=== PATIENT | female | born 1945 | race Caucasian/White ===

== ENCOUNTER 2018-05-16 03:45 | Emergency (ER) | payer OTHER ==
--- NOTE | 2018-05-16 03:59 | PDOC ---
History of Present Illness - General Chief Complaint: Chest Pain Stated Complaint: CHEST/HEAD DISCOMFORT Time Seen by Provider: 05/16/18 03:58 History Source: Patient, [employer] Machine Operator Used Exam Limitations: No Limitations - History of Present Illness Initial Comments: 05/16/18 04:29 HPI and ROS performed with phone inventory coordinator - [id number] 73 year old female with PMH HTN, HLD presenting to ED for palpitations since last night. She denies chest pain. She admits to shortness of breath, neck pain. She denies fever, chills, nausea, vomiting, diarrhea, abdominal pain, dysuria. She states she only gets the palpitations when she lies down flat to go to bed. She states she had a headache earlier last night, self-resolved without any medication, she states she gets headaches around once a week, usually will resolve with tylenol. She states she took all of her blood pressure medications. She denies family history of [place]. Past History - Past Medical History Allergies/Adverse Reactions: Allergies Allergy/AdvReac Type Severity Reaction Status Date / Time No Known Allergies Allergy Verified 05/16/18 04:29 Home Medications: Ambulatory Orders Metoprolol Tartrate [Lopressor -] 50 mg PO BID 06/13/12 Lisinopril [Prinivil] 10 mg PO DAILY 04/09/13 HTN: Yes Hypercholesterolemia: Yes - Suicide/Smoking/Psychosocial Hx Smoking Status: No Smoking History: Never smoked Number of Cigarettes Smoked Daily: 0 Review of Systems - Review of Systems Able to Perform ROS?: Yes Comments:: 05/16/18 04:32 General: denies fever, chills, night sweats, generalized weakness. HEENT: denies sore throat, rhinorrhea, ear pain, visual changes. Heart: admits to palpitations. denies chest pain, syncope, lower extremity swelling, diaphoresis. Respiratory: admits to shortness of breath. denies cough, sputum production, hemoptysis. Abdomen: denies abdominal pain, nausea, vomiting, diarrhea, constipation, blood in stool. : denies dysuria, increased urinary frequency, hematuria, urinary incontinence , flank pain. Back: denies back pain. Musculoskeletal: denies joint pain, muscle pain, joint swelling. Neurological: denies headache, dizziness, numbness, tingling, weakness. Skin: denies rash, laceration, abrasion. *Physical Exam - Physical Exam Comments: 05/16/18 04:33 Constitutional: Well-nourished, Well-developed, appearing stated age. HEENT: head is normocephalic, atraumatic. EOMI. PERRLA. Neck: supple. Full ROM. tenderness to palpation of left lateral neck. no midline c-spine tenderness. Heart: regular rhythm. no murmurs, rubs or gallops. Lungs: clear to auscultation bilaterally. no crackles, rhonchi or wheezing. no stridor. Abdomen: soft, nontender. normal bowel sounds. no rebound, guarding, masses. Extremities: Peripheral pulses intact adn equal. No lower extremity edema. Neurological: Alert. Oriented x3. CN2-12 intact. 5/5 strength all extremities. Full sensation all extremities and bilateral face. Romberg negative. Finger to nose normal. Gait normal. Psych: awake, alert, oriented x3. Follows commands. Answers questions appropriately. ED Treatment Course - LABORATORY CBC & Chemistry Diagram: 05/16/18 04:55 05/16/18 04:55 Medical Decision Making - Medical Decision Making 05/16/18 04:34 73 year old female with PMH HTN, HLD presenting to ED for palpitations since last night associated with SOB. Initial Vital Signs Temp Pulse Resp BP Pulse Ox 98.5 F 51 L 18 192/76 H 97 05/16/18 03:50 05/16/18 03:50 05/16/18 03:50 05/16/18 03:50 05/16/18 03:50 Afebrile. Bradycardic. Hypertensive. No hypoxia on room air. Carafate ordered by Dr. Bustamante. Gluagon ordered by Dr. Bustamante for bradycardia. Pt is on metoprolol. EKG performed at 0424 - Rate 47, regular rhythm, left axis, no acute ST changes. Concern for end-organ damage from HTN - Pending CBC, CMP, troponin, CXR Low concern for ACS, arrhythmia, EKG no arrhythmia, no ST changes, no chest pain. - No indication for serial troponins at this time. 05/16/18 05:39 CBC WBC 7.1 K/mm3 (4.0-10.0) 05/16/18 04:55 RBC 4.29 M/mm3 (3.60-5.2) 05/16/18 04:55 Hgb 13.2 GM/dL (10.7-15.3) 05/16/18 04:55 Hct 39.0 % (32.4-45.2) 05/16/18 04:55 MCV 91.0 fl (80-96) 05/16/18 04:55 MCH 30.8 pg (25.7-33.7) 05/16/18 04:55 MCHC 33.9 g/dl (32.0-36.0) 05/16/18 04:55 RDW 14.0 % (11.6-15.6) 05/16/18 04:55 Plt Count 168 K/MM3 (134-434) 05/16/18 04:55 MPV 10.5 fl (7.5-11.1) 05/16/18 04:55 Absolute Neuts (auto) 4.1 K/mm3 (1.5-8.0) 05/16/18 04:55 Neutrophils % 57.6 % (42.8-82.8) 05/16/18 04:55 Lymphocytes % 30.5 % (8-40) D 05/16/18 04:55 Monocytes % 10.0 % (3.8-10.2) 05/16/18 04:55 Eosinophils % 1.3 % (0-4.5) 05/16/18 04:55 Basophils % 0.6 % (0-2.0) 05/16/18 04:55 Nucleated RBC % 0 % (0-0) 05/16/18 04:55 No leukocytosis. No anemia. CMP Sodium 139 mmol/L (136-145) 05/16/18 04:55 Potassium 4.6 mmol/L (3.5-5.1) 05/16/18 04:55 Chloride 107 mmol/L (98-107) 05/16/18 04:55 Carbon Dioxide 27 mmol/L (21-32) 05/16/18 04:55 Anion Gap 5 MMOL/L (8-16) L 05/16/18 04:55 BUN 24 mg/dL (7-18) H 05/16/18 04:55 Creatinine 0.8 mg/dL (0.55-1.3) 05/16/18 04:55 Creat Clearance w eGFR > 60 (>60) 05/16/18 04:55 Random Glucose 89 mg/dL (74-106) 05/16/18 04:55 Calcium 8.9 mg/dL (8.5-10.1) 05/16/18 04:55 Total Bilirubin 0.4 mg/dL (0.2-1) 05/16/18 04:55 AST 15 U/L (15-37) 05/16/18 04:55 ALT 22 U/L (13-61) 05/16/18 04:55 Alkaline Phosphatase 98 U/L (45-117) 05/16/18 04:55 Creatine Kinase 80 IU/L (26-192) 05/16/18 04:55 Troponin I < 0.02 ng/ml (0.00-0.05) 05/16/18 04:55 Total Protein 7.2 g/dl (6.4-8.2) 05/16/18 04:55 Albumin 3.8 g/dl (3.4-5.0) 05/16/18 04:55 No electrolyte abnormalities. No kidney injury. Cardiac enzymes negative. No transaminitis. No evidence of end organ damage. 05/16/18 05:58 Pt reported inability to sleep the last few days, Benadryl was given. Repeat vitals: BP 182/73, lisinopril ordered. HR 50 -Will reassess. 05/16/18 06:17 INR, PTT INR 0.90 (0.83-1.09) 05/16/18 04:55 CXR - no infiltrate, costophrenic angles sharp, no sign of pneumothorax. 05/16/18 07:12 I discussed the case with Dr. Watts, who will assume care of the patient in the Emergency Department. *DC/Admit/Observation/Transfer Diagnosis at time of Disposition: Palpitation - Discharge Dispostion Disposition: HOME Condition at time of disposition: Fair - Referrals Referrals: Flakita Garcia [Primary Care Provider] - Alvaro Kumar MD [Staff Physician] - - Patient Instructions Printed Discharge Instructions: DI for Palpitations Additional Instructions: You were seen today for palpitations. Your blood work was normal. Your EKG was normal. Your chest X-ray was normal. Your blood pressure was high. We gave you medicine to lower it for now, but you will need to follow up with your primary care doctor so that they can alter your medications. Return to the Emergency Department for chest pain, palpitations, passing out, lightheadedness, dizziness, nausea, vomiting, blood in urine, blood in stool, shortness of breath, or any other new, worsening or concerning symptoms. I have provided a referral for a brownfield program coordinator, Dr. Jara. Call his office thursday morning and make an appointment for next week. Tell them you were seen in the Emergency Department. Hoy fuiste visto por palpitaciones. Edwards anlisis de renee fue normal. Tu EKG fue normal. Edwards radiografa de trax era normal. Tu presin arterial era ernie. Le proporcionamos medicamentos para disminuirlo por el momento, rene necesitar hacer un seguimiento con edwards mdico de atencin primaria para que puedan modificar denver medicamentos. Regrese al servicio de urgencias por dolor en el pecho, palpitaciones, desmayos , aturdimiento, mareos, nuseas, vmitos, renee en la orina, renee en las heces, dificultad para respirar o cualquier otro sntoma nuevo, que empeora o que le afecte. He proporcionado ca referencia para un cardilogo, el Dr. Jara. Llame a edwards oficina el lunes por la maana y scotty ca jennifer para la prxima semana. Diles que te vieron en el Departamento de Emergencia. - Post Discharge Activity
--- NOTE | 2018-05-16 04:06 | PDOC ---
Attending Attestation - Resident Resident Name: Shell Felix - ED Attending Attestation I have performed the following: I have examined & evaluated the patient, The case was reviewed & discussed with the resident, I agree w/resident's findings & plan - HPI HPI: 05/16/18 04:52 Pt states that she is here for palpitations only. Her BP is elevated. SHe has no chest pain and no chest pressure and no SOB. Pt states that she takes lisinopril in the day and metoprolol BID. Pt's HR is low 40s. Pt's EKG is jaxon. We will gusset edger her glucagon. 05/16/18 04:54 Pt states that she was unable to sleep on and that she was unable to sleep all thursday, - Physicial Exam PE: 05/16/18 05:05 Normal Exam. With SLNTG, BP came down to 180 sytolic in one arm and 176 in the other - Medical Decision Making 05/16/18 05:08 Pt will have basic labs to look for end organ damage of HTN at home. Pt will also have EKG. CXR pending. Pt will be treated with glucagon for her low heart rate as well as benadryl for her inability to sleep and relax. 05/16/18 19:22 Pt was signed out to the day attending, who will discharge her once her pressure is stable and she is feeling improved. Heart Score/ECG Review - History History: Slightly suspicious - Electrocardiogram EKG: Normal - Age Age: >/= 65 - Risk Factors Risk Factors Heart Score: Yes Hx Hypercholesterolemia, Yes Hx Hypertension Based on the list above the patient has:: >/=3 risk factors or Hx atherosclerotic disease - Troponin Troponin: </= normal limit - Score Heart Score - Total: 4 - ECG Intrepretation Rhythm: Regular Rhythm - [place]: Normal - ST and T Early Repolarization: No Non Specific ST-T Wave changes: No - ECG Impressions Normal ECG: Yes Non-specific ST Elevation: No Ischemic Changes: No
[2018-05-16] MEDS ORDERED: NITROGLYCERIN SUBLINGUAL 1/150 0.4 MG TAB SL ONE (04:21)
[2018-05-16] MEDS ORDERED: NITROGLYCERIN 2% OINTMENT - 1GM PACKET TD ONE (04:21)
[2018-05-16 04:29] VITALS: BMI 26.8
[2018-05-16] MEDS ORDERED: GLUCAGON 1 MG KIT IVPUSH ONE (04:52)
[2018-05-16] MEDS ORDERED: GlUCAGON HUMAN RECOMBINANT 1 MG/VIAL ONE (05:09)
[2018-05-16 05:13] LABS: BASO % 0.6 % (0-2.0); EOS % 1.3 % (0-4.5); HEMOGLOBIN 13.2 GM/dL (10.7-15.3); LYMPH % 30.5 % (8-40); MCH 30.8 pg (25.7-33.7); MCHC 33.9 g/dl (32.0-36.0); MEAN PLT VOLUME 10.5 fl (7.5-11.1); NEUT % 57.6 % (42.8-82.8); PLATELET COUNT 168 K/MM3 (134-434); RBC 4.29 M/mm3 (3.60-5.2); WHITE BLOOD COUNT 7.1 K/mm3 (4.0-10.0)
[2018-05-16 05:25] LABS: INR 0.9 (0.83-1.09); PROTHROMBIN TIME (PATIENT) 10.6 SEC (9.7-13.0)
[2018-05-16 05:28] LABS: ACTIVATED PTT 23.9 SECONDS (25.2-36.5)
[2018-05-16 05:33] LABS: ALBUMIN 3.8 g/dl (3.4-5.0); ALK PHOS 98 U/L (45-117); ANION GAP 5 MMOL/L (8-16); BILIRUBIN,TOTAL 0.4 mg/dL (0.2-1); BLOOD UREA NITROGEN 24 mg/dL (7-18); CALCIUM 8.9 mg/dL (8.5-10.1); CHLORIDE 107 mmol/L (98-107); CO2 27 mmol/L (21-32); CREATININE 0.8 mg/dL (0.55-1.3); GLUCOSE,RANDOM 89 mg/dL (74-106); POTASSIUM 4.6 mmol/L (3.5-5.1); SGOT/AST 15 U/L (15-37); SGPT/ALT 22 U/L (13-61); SODIUM 139 mmol/L (136-145); TOT PROT 7.2 g/dl (6.4-8.2)
[2018-05-16] MEDS ORDERED: LISINOPRIL 10 MG TABLET (FP) PO ONE (05:58)
--- NOTE | 2018-05-16 07:13 | PDOC ---
*Physical Exam - Vital Signs Last Vital Signs Temp Pulse Resp BP Pulse Ox 98.5 F 51 L 18 192/76 H 97 05/16/18 03:50 05/16/18 03:50 05/16/18 03:50 05/16/18 03:50 05/16/18 03:50 ED Treatment Course - LABORATORY CBC & Chemistry Diagram: 05/16/18 04:55 05/16/18 04:55 - ADDITIONAL ORDERS Additional order review: Laboratory Results 05/16/18 05/16/18 04:55 04:55 PT with INR 10.60 INR 0.90 PTT (Actin FS) 23.9 L Sodium 139 Potassium 4.6 Chloride 107 Carbon Dioxide 27 Anion Gap 5 L BUN 24 H Creatinine 0.8 Creat Clearance w eGFR > 60 Random Glucose 89 Calcium 8.9 Total Bilirubin 0.4 AST 15 ALT 22 Alkaline Phosphatase 98 Creatine Kinase 80 Troponin I < 0.02 Total Protein 7.2 Albumin 3.8 05/16/18 04:55 RBC 4.29 MCV 91.0 MCHC 33.9 RDW 14.0 MPV 10.5 Neutrophils % 57.6 Lymphocytes % 30.5 D Monocytes % 10.0 Eosinophils % 1.3 Basophils % 0.6 - Medications Given in the ED: ED Medications Discontinued Medications Generic Name Dose Route Start Last Admin Trade Name Freq PRN Reason Stop Dose Admin Diphenhydramine HCl 50 mg 05/16/18 04:54 05/16/18 05:26 Benadryl Injection - IVPB 05/16/18 04:55 50 mg ONCE ONE Administration Glucagon 1 mg 05/16/18 04:52 05/16/18 05:26 Glucagon - IVPUSH 05/16/18 04:53 1 mg ONCE ONE Administration Lisinopril 10 mg 05/16/18 05:58 05/16/18 06:40 Prinivil PO 05/16/18 05:59 10 mg ONCE ONE Administration Nitroglycerin 0.4 mg 05/16/18 04:21 05/16/18 05:26 Nitrostat - SL 05/16/18 04:22 Not Given ONCE ONE Nitroglycerin 1 inch 05/16/18 04:21 05/16/18 05:26 Nitro-Bid 2% Paste - TD 05/16/18 04:22 Not Given ONCE ONE Medical Decision Making - Medical Decision Making 73 year old female presenting with palpitations and elevated BP a home. Signed out to me in stable condition with repeat BP in the 150s/ 70s. Appears jaxon but patient is perfusing well as she is AOx3, walking, and able to carry out her ADLs. EKG [id number], OR 152, QRS 80, QTc 403, and normal xis without ST or T wave changes. All labs WNL. Will DC home with follow up instructions and return precautions, 05/16/18 08:43 *DC/Admit/Observation/Transfer Diagnosis at time of Disposition: Palpitation - Discharge Dispostion Disposition: HOME Condition at time of disposition: Fair - Referrals Referrals: Alvaro Kumar MD [Staff Physician] - Flakita Garcia [Primary Care Provider] - - Patient Instructions Printed Discharge Instructions: DI for Palpitations Additional Instructions: You were seen today for palpitations. Your blood work was normal. Your EKG was normal. Your chest X-ray was normal. Your blood pressure was high. We gave you medicine to lower it for now, but you will need to follow up with your primary care doctor so that they can alter your medications. Return to the Emergency Department for chest pain, palpitations, passing out, lightheadedness, dizziness, nausea, vomiting, blood in urine, blood in stool, shortness of breath, or any other new, worsening or concerning symptoms. I have provided a referral for a stove fitter, Dr. Jara. Call his office thursday morning and make an appointment for next week. Tell them you were seen in the Emergency Department. Hoy fuiste visto por palpitaciones. Edwards anlisis de renee fue normal. Tu EKG fue normal. Edwards radiografa de trax era normal. Tu presin arterial era ernie. Le proporcionamos medicamentos para disminuirlo por el momento, rene necesitar hacer un seguimiento con edwards mdico de atencin primaria para que puedan modificar denver medicamentos. Regrese al servicio de urgencias por dolor en el pecho, palpitaciones, desmayos , aturdimiento, mareos, nuseas, vmitos, renee en la orina, renee en las heces, dificultad para respirar o cualquier otro sntoma nuevo, que empeora o que le afecte. He proporcionado ca referencia para un cardilogo, el Dr. Jara. Llame a edwards oficina el lunes por la maana y scotty ca jennifer para la prxima semana. Diles que te vieron en el Departamento de Emergencia. - Post Discharge Activity
[2018-05-16 07:36] VITALS: TEMP 99.3
[2018-05-16 09:24] VITALS: BP 155/68; PULSE 52
--- NOTE | 2018-05-17 06:29 | EKG ---
Test Reason : Blood Pressure : / mmHG Vent. Rate : 047 BPM Atrial Rate : 047 BPM P-R Int : 152 ms QRS Dur : 080 ms QT Int : 456 ms P-R-T Axes : 026 -10 020 degrees QTc Int : 403 ms SINUS BRADYCARDIA OTHERWISE NORMAL ECG WHEN COMPARED WITH ECG OF 09-APR-2013 00:51, NO SIGNIFICANT CHANGE WAS FOUND Confirmed by RADHIKA BARBOSA MD ([id number]) on 05/17/2018 6:29:00 AM Referred By: Confirmed By:RADHIKA BARBOSA MD
== END 2018-05-16 09:27 | disposition home or self-care (01) ==
LOC: JER 03:45
PROC: 3E033GC Introduction of Other Therapeutic Substance into Peripheral Vein, Percutaneous Approach (ICD-10-PCS; principal; 2018-05-16)
DX: R00.2 Palpitations (principal)
CPT/HCPCS: 36415; 71045-TC-FY; 80053; 82550; 84484; 85025; 85610; 85730; 93005; 93010; 96374; 96375; 99285-25

== ENCOUNTER 2018-06-02 03:51 | Inpatient (IN) | payer OTHER ==
--- NOTE | 2018-06-02 04:14 | PDOC ---
Attending Attestation - Resident Resident Name: Rustam Choudhary - ED Attending Attestation I have performed the following: I have examined & evaluated the patient, The case was reviewed & discussed with the resident, I agree w/resident's findings & plan, Exceptions are as noted - HPI HPI: 06/02/18 07:01 Ms Wilson presents to the ER with a complaint of palpitations and chest pain No fevers or chills - Physicial Exam PE: 06/02/18 07:02 on exam: RRR, bradycardia CTA b/l No abd tenderness - Medical Decision Making 06/02/18 07:04 EKG: SR rate of 59 bpm , axis nml, no st elevation or depression No tachycardia 06/02/18 07:04 Laboratory Tests 06/02/18 06:05 WBC 4.9 Hgb 12.6 Hct 38.5 Plt Count 152 06/03/18 06:14 pending CMP pt signed out to day time attending pt admitted Clinical impressions, initial presentation
--- NOTE | 2018-06-02 04:25 | PDOC ---
History of Present Illness - History of Present Illness Initial Comments: 06/02/18 04:23 73 yo F with h/o HTN, who p/w palpitations, and chest pain. Patient reports acute onset of palpitations this morning, and non-pleuritic, worsening, left sided chest pain, at rest beginning this evening. No identifiable triggers, or alleviators. Also endorses SOB intermittently. Reports recent medication change. Started on Amlodipine. Denies h/o similiar symptoms. Patient denies N/V, Orthopnea, PND, leg swelling/pain, F/C, CP, SOB, urinary complaints, abdominal pain, diarrhea, constipation, lightheadedness, weakness, sensory changes. PMHx: as noted above. Denies h/o ACS/WA, stent placement, CABG, or abnml stress testing. Does not recall previous stress test. Denies h/o PE or DVT. ROS: as noted SHx: Tobacco cessation x 11 years. Denies Etoh, IVDA. Allergies: NKDA <Rustam Choudhary - Last Filed: 06/02/18 06:29> <Catie Keller - Last Filed: 06/02/18 08:41> - General Stated Complaint: PRESSURE PROBLEM Time Seen by Provider: 06/02/18 04:13 Past History - Past Medical History COPD: No HTN: Yes Hypercholesterolemia: Yes - Suicide/Smoking/Psychosocial Hx Smoking Status: No Smoking History: Never smoked Have you smoked in the past 12 months: No Number of Cigarettes Smoked Daily: 0 Hx Alcohol Use: No Drug/Substance Use Hx: No Substance Use Type: None <Rustam Choudhary - Last Filed: 06/02/18 06:29> <Catie Kellre - Last Filed: 06/02/18 08:41> - Past Medical History Allergies/Adverse Reactions: Allergies Allergy/AdvReac Type Severity Reaction Status Date / Time No Known Allergies Allergy Verified 05/16/18 04:29 Home Medications: Ambulatory Orders Amlodipine Besylate/Benazepril [Lotrel 5-20 mg Capsule] 1 each PO HS 06/02/18 Omeprazole 20 mg PO DAILY 06/02/18 Review of Systems - Review of Systems Comments:: 06/02/18 04:24 GENERAL/CONSTITUTIONAL: No fever or chills. No weakness. HEAD, EYES, EARS, NOSE AND THROAT: No change in vision. No ear pain or discharge. No sore throat. CARDIOVASCULAR: +chest pain and shortness of breath. RESPIRATORY: No cough, wheezing, or hemoptysis. GASTROINTESTINAL: No nausea, vomiting, diarrhea or constipation. GENITOURINARY: No dysuria, frequency, or change in urination. MUSCULOSKELETAL: No joint or muscle swelling or pain. No neck or back pain. SKIN: No rash NEUROLOGIC: No headache, vertigo, loss of consciousness, or change in strength/ sensation. ENDOCRINE: No increased thirst. No abnormal weight change HEMATOLOGIC/LYMPHATIC: No anemia, easy bleeding, or history of blood clots. ALLERGIC/IMMUNOLOGIC: No hives or skin allergy. <Rustam Choudhary - Last Filed: 06/02/18 06:29> *Physical Exam - Physical Exam Comments: 06/02/18 04:24 GENERAL: Awake, alert, and fully oriented, in no acute distress HEAD: No signs of trauma, normocephalic, atraumatic EYES: PERRLA, EOMI, sclera anicteric, conjunctiva clear ENT: Hearing grossly normal, nares patent, oropharynx clear without exudates. Moist mucosa NECK: Normal ROM, supple, no lymphadenopathy, JVD, or masses LUNGS: No distress, speaks full sentences, clear to auscultation bilaterally HEART: Regular rate and rhythm, normal S1 and S2, no murmurs, rubs or gallops, peripheral pulses normal and equal bilaterally. ABDOMEN: Soft, nontender, normoactive bowel sounds. No guarding, no rebound. No masses EXTREMITIES : Normal inspection, Normal range of motion, no edema. No clubbing or cyanosis. NEUROLOGICAL: Cranial nerves II through XII grossly intact. Normal speech, normal gait, no focal sensorimotor deficits SKIN: Warm, Dry, normal turgor, no rashes or lesions noted <Rustam Choudhary - Last Filed: 06/02/18 06:29> - Vital Signs Last Vital Signs Temp Pulse Resp BP Pulse Ox 98.5 F 69 19 155/80 98 06/02/18 03:55 06/02/18 03:55 06/02/18 03:55 06/02/18 03:55 06/02/18 03:55 <Catie Keller - Last Filed: 06/02/18 08:41> Heart Score/ECG Review - History History: Slightly suspicious - Age Age: >/= 65 - Risk Factors Risk Factors Heart Score: Yes Hx Hypercholesterolemia, Yes Hx Hypertension, Yes Smoking History, Yes Positive family hx of cardiac disease Based on the list above the patient has:: >/=3 risk factors or Hx atherosclerotic disease <Rustam Choudhary - Last Filed: 06/02/18 06:29> ED Treatment Course - LABORATORY CBC & Chemistry Diagram: 06/02/18 06:05 06/02/18 06:05 - ADDITIONAL ORDERS Additional order review: Laboratory Results 06/02/18 06:05 Sodium 141 Potassium 4.0 Chloride 106 Carbon Dioxide 29 Anion Gap 5 L BUN 16 Creatinine 0.7 Creat Clearance w eGFR > 60 Random Glucose 94 Calcium 8.9 Total Bilirubin 0.6 AST 18 ALT 22 Alkaline Phosphatase 83 Creatine Kinase 161 Creatine Kinase Index 1.6 CK-MB (CK-2) 2.6 Troponin I < 0.02 Total Protein 6.7 Albumin 3.7 06/02/18 06:05 RBC 4.20 MCV 91.6 MCHC 32.7 RDW 13.9 MPV 10.6 Neutrophils % 57.4 Lymphocytes % 30.1 Monocytes % 8.8 Eosinophils % 3.1 D Basophils % 0.6 - Consult/PCP Time Called: 08:40 (Paged Dr. Carter. ) <Catie Keller - Last Filed: 06/02/18 08:41> Medical Decision Making - Medical Decision Making 06/02/18 04:57 73 yo F with h/o HTN, who p/w palpitations, chest pain, and SOB at rest. VSS, AF. Physical exam unremarkable. ACS/WA r/o. R/o PNA. PERC + based on age. Low risk PE based on Weils Criteria. Low suspicion AAA, Ao dissection, pericarditis. Will evaluate for hypoglycemia, cardiac dysarrythmias, electrolyte abnml, metabolic or toxic derangements, acid-base disturbances, or infection. ED Course: CBC,CMP, Cardiac Pr. EKG, CXR 06/02/18 06:34 Patient pending labs. Stable. Signed out to day team. Likely tele admit for obs. <Rustam Choudhary - Last Filed: 06/02/18 06:29> *DC/Admit/Observation/Transfer - Discharge Dispostion Decision to Admit order: No - Attestations Physician Attestion: 10/17/18 04:24 I attest to the information provided in this note. <Rustam Choudhary - Last Filed: 06/02/18 06:29> <Catie Keller - Last Filed: 06/02/18 08:41> Diagnosis at time of Disposition: Chest pain at rest, Palpitation - Discharge Dispostion Condition at time of disposition: Stable - Referrals Referrals: Flakita Garcia [Primary Care Provider] - - Patient Instructions Printed Discharge Instructions: DI for Atypical Chest Pain Additional Instructions: Please return to the emergency department with any new or worsening symptoms or concerns. Please follow up with your primary care physician within 72 hours. - Post Discharge Activity
[2018-06-02 07:00] LABS: BASO % 0.6 % (0-2.0); EOS % 3.1 % (0-4.5); HEMATOCRIT 38.5 % (32.4-45.2); HEMOGLOBIN 12.6 GM/dL (10.7-15.3); LYMPH % 30.1 % (8-40); MCH 29.9 pg (25.7-33.7); MCHC 32.7 g/dl (32.0-36.0); MEAN CELL VOLUME 91.6 fl (80-96); MEAN PLT VOLUME 10.6 fl (7.5-11.1); MONO % 8.8 % (3.8-10.2); NEUT % 57.4 % (42.8-82.8); PLATELET COUNT 152 K/MM3 (134-434); RDW 13.9 % (11.6-15.6); WHITE BLOOD COUNT 4.9 K/mm3 (4.0-10.0)
[2018-06-02 07:34] LABS: ALBUMIN 3.7 g/dl (3.4-5.0); ALK PHOS 83 U/L (45-117); ANION GAP 5 MMOL/L (8-16); BILIRUBIN,TOTAL 0.6 mg/dL (0.2-1); BLOOD UREA NITROGEN 16 mg/dL (7-18); CALCIUM 8.9 mg/dL (8.5-10.1); CHLORIDE 106 mmol/L (98-107); CO2 29 mmol/L (21-32); CREATININE 0.7 mg/dL (0.55-1.3); GLUCOSE,RANDOM 94 mg/dL (74-106); SGOT/AST 18 U/L (15-37); SGPT/ALT 22 U/L (13-61); SODIUM 141 mmol/L (136-145); TOT PROT 6.7 g/dl (6.4-8.2)
[2018-06-02] MEDS ORDERED: ASPIRIN 81 MG CHEWABLE TABLETS PO ONE (08:47)
[2018-06-02] MEDS ORDERED: ASPIRIN 81 MG CHEWABLE TABLETS ONE (08:54)
--- NOTE | 2018-06-02 08:54 | PDOC ---
*Physical Exam - Vital Signs Last Vital Signs Temp Pulse Resp BP Pulse Ox 98.5 F 69 19 155/80 98 06/02/18 03:55 06/02/18 03:55 06/02/18 03:55 06/02/18 03:55 06/02/18 03:55 - Physical Exam Comments: 06/02/18 08:50 gen: awake, alert heart: +s1s2 reg, mild anterior chest wall ttp lungs: cta b/l abd: soft, nt/nd +bs ext: no c/c/e ED Treatment Course - LABORATORY CBC & Chemistry Diagram: 06/02/18 06:05 06/02/18 06:05 - ADDITIONAL ORDERS Additional order review: Laboratory Results 06/02/18 06:05 Sodium 141 Potassium 4.0 Chloride 106 Carbon Dioxide 29 Anion Gap 5 L BUN 16 Creatinine 0.7 Creat Clearance w eGFR > 60 Random Glucose 94 Calcium 8.9 Total Bilirubin 0.6 AST 18 ALT 22 Alkaline Phosphatase 83 Creatine Kinase 161 Creatine Kinase Index 1.6 CK-MB (CK-2) 2.6 Troponin I < 0.02 Total Protein 6.7 Albumin 3.7 06/02/18 06:05 RBC 4.20 MCV 91.6 MCHC 32.7 RDW 13.9 MPV 10.6 Neutrophils % 57.4 Lymphocytes % 30.1 Monocytes % 8.8 Eosinophils % 3.1 D Basophils % 0.6 - Consult/PCP Time Called: 08:40 (Paged Dr. Carter. ) Medical Decision Making - Medical Decision Making 06/02/18 08:51 a/p: 73yo female signed out pending labs and placement in obs -pt with cp, palpitations, sob -trop negative -labs reviewed and stable -pt still with chest discomfort -will give asa -will place in obs -PMD Flakita Garcia - who admits to Dr. Tam - call placed to Dr. Tam 06/02/18 09:[address] Carter who accepts pt to service consult placed to dr. sears *DC/Admit/Observation/Transfer Diagnosis at time of Disposition: Chest pain at rest, Palpitation - Discharge Dispostion Condition at time of disposition: Stable Decision to Admit order: Yes Decision to Admit order Date/Time: Decision to Admit Order Category Date Time Status Decision to Admit to Hospital Routine Admission 06/02/18 08:47 Active - Referrals Referrals: Flakita Garcia [Primary Care Provider] - - Patient Instructions Printed Discharge Instructions: DI for Atypical Chest Pain Additional Instructions: Please return to the emergency department with any new or worsening symptoms or concerns. Please follow up with your primary care physician within 72 hours. - Post Discharge Activity - Attestations Physician Attestion: 06/02/18 08:54 I, Dr. Justyna Bennett, DO, attest that this document has been prepared under my direction and personally reviewed by me in its entirety. I further attest, that it accurately reflects all work, treatment, procedures and medical decision -making performed by me.
--- NOTE | 2018-06-02 10:25 | EKG ---
Test Reason : Blood Pressure : / mmHG Vent. Rate : 059 BPM Atrial Rate : 059 BPM P-R Int : 160 ms QRS Dur : 082 ms QT Int : 440 ms P-R-T Axes : 024 -14 000 degrees QTc Int : 435 ms SINUS BRADYCARDIA OTHERWISE NORMAL ECG WHEN COMPARED WITH ECG OF 16-MAY-2018 04:24, NO SIGNIFICANT CHANGE WAS FOUND Confirmed by GERALDO CHAVES MD ([id number]) on 06/02/2018 10:24:33 AM Referred By: Confirmed By:GERALDO CHAVES MD
[2018-06-02] MEDS: ASPIRIN COATED 81 MG TABLET.EC PO SCH (12:11)
[2018-06-02] MEDS: metoPROLOL SUCCINATE 25 MG TAB.SR.24H (FP) PO SCH (12:16)
[2018-06-02 13:15] VITALS: BMI 24.8
[2018-06-02 13:28] LABS: CHOLESTEROL 175 mg/dL (50-200); HDL CHOLESTEROL 69 mg/dL (40-60); TRIGLYCERIDES 111 mg/dL (0-150)
--- NOTE | 2018-06-02 14:43 | CON.CARD ---
Consult Consult Specialty:: Cardiology Referred by:: Dr. Carter Reason for Consultation:: chest pain - History of Present Illness Chief Complaint: chest pain History of Present Illness: 73 year old woman pmh HTN admitted with chest pain and palpitations. Pt seen and examined today in nad. no further chest pain since admission. getting set up for echo now. chest pain was described as left sided, pressure like, starting at rest in the evening as well as intermittent sob. no pnd, orthopnea, or le edema. - History Source History Provided By: Patient Limitations to Obtaining History: Language Barrier - Past Medical History Cardio/Vascular: Yes: HTN ...: No - Alcohol/Substance Use Hx Alcohol Use: No - Smoking History Smoking history: Never smoked Have you smoked in the past 12 months: No Aproximately how many cigarettes per day: 0 - Social History ADL: Independent History of Recent Travel: No Home Medications - Allergies Allergies/Adverse Reactions: Allergies Allergy/AdvReac Type Severity Reaction Status Date / Time No Known Allergies Allergy Verified 05/16/18 04:29 - Home Medications Home Medications: Ambulatory Orders Amlodipine Besylate/Benazepril [Lotrel 5-20 mg Capsule] 1 each PO HS 06/02/18 Omeprazole 20 mg PO DAILY 06/02/18 Family Disease History - Family Disease History Family History: Denies Review of Systems - Review of Systems Constitutional: denies: No Symptoms, Chills, Diaphoresis, Fever, Lethargy, Loss of Appetite, Malaise, Night Sweats, Unintentional Wgt. Loss, Weakness, Other Eyes: denies: No Symptoms, Blind Spots, Blurred Vision, Double Vision, Eye Pain , Floaters, Photophobia, Recent Change in Vision, Other HENT: denies: No Symptoms, Difficult Swallowing, Ear Discharge, Ear Pain, Epistaxis, Gingival Bleeding, Hearing Loss, Mouth Swelling, Nasal Congestion, Ocular Prosthesis, Throat Pain, Toothache, Ringing in Ears, Other Neck: denies: No Symptoms, Decreased ROM, Lumps, Pain on Movement, Stiffness, Swollen Glands, Tenderness, Other Cardiovascular: reports: Chest Pain, Palpitations, Shortness of Breath. denies : No Symptoms, Edema, Other Respiratory: reports: SOB, SOB on Exertion. denies: No Symptoms, Cough, Exercise Intolerance, Hemoptysis, Orthopnea, PND, Snoring, Wheezing, Other Gastrointestinal: denies: No Symptoms, Abdominal Pain, Bloating, Constipation, Diarrhea, Dysphagia, Indigestion, Melena, Nausea, Rectal Bleeding, Vomiting, Vomiting Blood, Other Genitourinary: denies: No Symptoms, Burning, Discharge, Dysuria, Flank Pain, Frequency, Hematuria, Incontinence, Lesions, Menses, Pain, Testicular Mass, Testicular Pain, Testicular Swelling, Urgency, Vaginal Bleeding, Other Breasts: denies: No Symptoms Reported, See HPI, Breast Implants, Discharge from Nipple, Lumps, Pain, Skin Changes, Other Musculoskeletal: denies: No Symptoms, Back Pain, Crepitus, Decreased ROM, Extremity Pain, Joint Pain, Joint Swelling, Muscle Pain, Muscle Cramps, Muscle Weakness, Other Integumentary: denies: No Symptoms, Blister, Bruising, Change in Color, Eczema, Erythema, Incision, Lesions, Lump, Pallor, Pruritis, Rash, Wound, Other Neurological: denies: No Symptoms, Change in LOC, Change in Speech, Confusion, Dizziness, Headache, Incoordination, Numbness, Parasthesia, Pre-Existing Deficit , Seizure, Syncope, Tremors, Unsteady Gait, Weakness, Other Endocrine: denies: No Symptoms, Excessive Sweating, Flushing, Increased Hunger, Increased Thirst, Intolerance to Cold, Intolerance to Heat, Unexplained Weight Gain, Unexplained Weight Loss, Other Hematology/Lymphatic: denies: No Symptoms, Easily Bruised, Excessive Bleeding, Swollen Glands, Other Psychiatric: denies: No Symptoms, Altered Sleep Pattern, Anxiety, Depression, Hallucinations, Panic, Paranoia, Suicidal, Other - Risk Factors Known Risk Factors: Yes: Hypertension Vital Signs: Vital Signs Temperature 98.2 F 06/02/18 13:57 Pulse Rate 66 06/02/18 13:57 Respiratory Rate 18 06/02/18 13:57 Blood Pressure 159/74 06/02/18 13:08 O2 Sat by Pulse Oximetry (%) 98 06/02/18 13:05 Constitutional: Yes: Well Nourished, No Distress, Calm Eyes: Yes: WNL, Conjunctiva Clear, EOM Intact, PERRL HENT: Yes: WNL, Atraumatic, Normocephalic Neck: Yes: WNL, Supple, Trachea Midline Respiratory: Yes: WNL, Regular, CTA Bilaterally. No: Rales, Rhonchi, Wheezes Gastrointestinal: Yes: WNL, Normal Bowel Sounds, Soft. No: Distention, Tenderness Renal/: Yes: WNL Cardiovascular: Yes: WNL, Regular Rate and Rhythm. No: Bradycardia, Tachycardia , Pulse Irregular, Gallop, Rub, Varicosities JVD: No Carotid Bruit: No PMI: Non-Displaced Heart Sounds: Yes: S1, S2. No: Split S2, S3, S4, Clicks, Gallop, Rub, Bruit Murmur: No: Systolic Murmur, Diastolic Murmur Musculoskeletal: Yes: WNL Extremities: Yes: WNL Edema: No Peripheral Pulses WNL: Yes Peripheral Pulses: 2+ Left Doralis Pedis, 2+ Right Dorsalis Pedis Integumentary: Yes: WNL Neurological: Yes: WNL, Alert, Oriented, Cran Nerves II-XII Intact ...Motor Strength: WNL Psychiatric: Yes: WNL, Alert, Oriented - Other Data Labs, Other Data: CBC, BMP 06/02/18 06:05 06/02/18 06:05 Troponin, BNP 06/02/18 06/02/18 06:05 12:40 Troponin I < 0.02 < 0.02 Troponin, BNP 06/02/18 06/02/18 06:05 12:40 Troponin I < 0.02 < 0.02 ekg-sinus jaxon 59bpm, no ischemia Imaging - Results Chest X-ray: Report Reviewed, Image Reviewed EKG: Report Reviewed, Image Reviewed Other: Report Reviewed, Image Reviewed (tele-nsr, no arrhythmias) Assessment/Plan 73 year old woman pmh HTN admitted with chest pain and palpitations. Pt seen and examined today in nad. no further chest pain since admission. getting set up for echo now. chest pain was described as left sided, pressure like, starting at rest in the evening as well as intermittent sob. Chest pain/palpitations/sob-atypical, unlikely ACS -no ischemia on ekg -no further chest pain -cardiac enzymes wnl x 2 -cont ASA, lisinopril, norvasc -cont cont toprol as long as HR tolerates -cont tele monitoring -fup echo results -plan for exercise nuclear stress test to evaluate for ischemia, keep npo after midnight except meds for stress test tomorrow HTN-above longterm goal -cont current medical regimen for now and adjust as needed for HTN control
[2018-06-02] MEDS ORDERED: FLU VACCINE QUAD 60 MCG/0.5 ML (MDV 18-19) IM ONE (15:00)
--- NOTE | 2018-06-02 15:47 | ECHO ---
Name: NAHUN BENDER Exam:Adult Echocardiogram Study Date: 06/02/2018 02:16 PM Age: 73 yrs Reason For Study: Palpitations Height: 65 in Weight: 313 lb BSA: 2.4 m2 MMode/2D Measurements & Calculations IVSd: 1.0 cm Ao root diam: 2.1 cm LVIDd: 3.5 cm LVIDs: 2.4 cm LVPWd: 0.84 cm EDV(Teich): 50.9 ml LVOT diam: 2.0 cm ESV(Teich): 20.0 ml Procedure A two-dimensional transthoracic echocardiogram with color flow and Doppler was performed. Left Ventricle The left ventricular size, thickness and function are normal. The left ventricular ejection fraction is normal. E/A reversal consistent with but not diagnostic of poor LV compliance. Regional wall motion abnormalities cannot be excluded due to limited visualization. Right Ventricle The right ventricle is not well visualized. Atria Normal left and right atrial size and function. Mitral Valve There is mild mitral valve thickening. There is no mitral valve stenosis. There is trace to mild mitr al regurgitation. Tricuspid Valve There is trivial tricuspid valve thickening. There is no tricuspid stenosis. There was insufficient T R detected to calculate RV systolic pressure. Aortic Valve The aortic valve is not well visualized. No hemodynamically significant valvular aortic stenosis. No aortic regurgitation is present. Pulmonic Valve The pulmonic valve is not well visualized. Great Vessels The aortic root is normal size. Pericardium/Pleura There is no pericardial effusion. Interpretation Summary The left ventricular size, thickness and function are normal The left ventricular ejection fraction is normal. Regional wall motion abnormalities cannot be excluded due to limited visualization. E/A reversal consistent with but not diagnostic of poor LV compliance There is trace to mild mitral regurgitation. There was insufficient TR detected to calculate RV systolic pressure. MD Alvaro Kumar 06/02/2018 03:47 PM
--- NOTE | 2018-06-02 16:12 | HP ---
Admitting History and Physical - Primary Care Physician PCP: Shanda Carter - Admission Chief Complaint: CHEST PAIN/PALPITATIONS/DIZZINESS History of Present Illness: 73 yo F with h/o HTN, who p/w palpitations, and chest pain. Patient reports acute onset of palpitations this morning, and non-pleuritic, worsening, left sided chest pain, at rest beginning this evening. No identifiable triggers, or alleviators. Also endorses SOB intermittently. Reports recent medication change. Started on Amlodipine. Denies h/o similiar symptoms. Patient denies N/V, Orthopnea, PND, leg swelling/pain, F/C, CP, SOB, urinary complaints, abdominal pain, diarrhea, constipation, lightheadedness, weakness, sensory changes. History Source: Patient, Medical Record - Past Medical History Cardiovascular: Yes: HTN ...: No - Smoking History Smoking history: Never smoked Have you smoked in the past 12 months: No Aproximately how many cigarettes per day: 0 - Alcohol/Substance Use Hx Alcohol Use: No - Social History ADL: Independent History of Recent Travel: No Home Medications - Allergies Allergies/Adverse Reactions: Allergies Allergy/AdvReac Type Severity Reaction Status Date / Time No Known Allergies Allergy Verified 05/16/18 04:29 - Home Medications Home Medications: Ambulatory Orders Amlodipine Besylate/Benazepril [Lotrel 5-20 mg Capsule] 1 each PO HS 06/02/18 Omeprazole 20 mg PO DAILY 06/02/18 Review of Systems - Review of Systems Constitutional: reports: Weakness Eyes: reports: No Symptoms HENT: reports: No Symptoms Neck: reports: No Symptoms Cardiovascular: reports: Palpitations, Shortness of Breath Respiratory: reports: No Symptoms Gastrointestinal: reports: No Symptoms Musculoskeletal: reports: No Symptoms Integumentary: reports: No Symptoms Neurological: reports: No Symptoms Endocrine: reports: No Symptoms Hematology/Lymphatic: reports: No Symptoms Psychiatric: reports: No Symptoms Physical Examination Vital Signs: Vital Signs Temperature 98.2 F 06/02/18 13:57 Pulse Rate 66 06/02/18 13:57 Respiratory Rate 18 06/02/18 13:57 Blood Pressure 127/87 06/02/18 15:00 O2 Sat by Pulse Oximetry (%) 98 06/02/18 13:05 Constitutional: Yes: Mild Distress Eyes: Yes: WNL HENT: Yes: WNL Neck: Yes: WNL Cardiovascular: Yes: WNL Respiratory: Yes: WNL Gastrointestinal: Yes: WNL Renal/: Yes: WNL Musculoskeletal: Yes: WNL Extremities: Yes: WNL Edema: No Peripheral Pulses WNL: Yes Integumentary: Yes: WNL Wound/Incision: Yes: Clean/Dry Neurological: Yes: WNL ...Motor Strength: WNL Psychiatric: Yes: WNL Labs: CBC, BMP 06/02/18 06:05 06/02/18 06:05 Problem List - Problems (1) Chest pain at rest Code(s): R07.9 - CHEST PAIN, UNSPECIFIED (2) Palpitation Code(s): R00.2 - PALPITATIONS Assessment/Plan MONITOR ON TELEMETRY/ICU CHECK LABS TSH ORDERED CARDIO EVAL OOB TO CHAIR CHECK LABS
[2018-06-02] MEDS: HEPARIN NA (PORCINE) 5,000 UNITS/ML 1ML VIAL SQ SCH (21:41)
[2018-06-02] MEDS ORDERED: LISINOPRIL 20 MG TABLET (FP) PO SCH (22:00)
[2018-06-02] MEDS ORDERED: PATIENT'S OWN MEDICATION (NON-FORMULARY) (Amlodipine Besylate/Benazepril [Lotrel 5-20 Mg C PO SCH (22:00)
[2018-06-02] MEDS ORDERED: amLODIPine BESYLATE 5 MG TABLET (FP) PO SCH (22:00)
--- NOTE | 2018-06-03 06:20 | HOSP ---
Subjective - Review of Symptoms Events since last encounter: Hospitalist Encounter Was notified by the Primary RN that the patient became hypotensive 70/44, dizzy and pale, after walking to the bathroom. Per the RN the patient was transferred this morning from to [address] [place] [address]. Subjective: Assessment: Arrived to bedside, patient is alert, awake and oriented lying in supine, reports that the dizziness subsided. Patient denies CP, palpitations or SOB. This is a 73 y/o woman hx HTN. Admitted for Chest Pain pending Stress Test this am Patient was given her Lisinopril, Norvasc last night and is NPO. Plan: NS 250ml bolus Bedrest Trendelenburg Orthostatics after bolus RN to inform PCP of the overnight's event Cardiovascular: Yes: Light Headedness Physical Examination Vital Signs: Vital Signs Temperature 98.2 F 06/03/18 02:00 Pulse Rate 82 06/03/18 02:00 Respiratory Rate 18 06/03/18 02:00 Blood Pressure 117/55 L 06/03/18 02:00 O2 Sat by Pulse Oximetry (%) 99 06/02/18 21:00 Constitutional: Yes: Well Nourished, No Distress, Calm Eyes: Yes: WNL, Conjunctiva Clear, EOM Intact, PERRL HENT: Yes: WNL, Atraumatic, Normocephalic Neck: Yes: WNL, Supple, Trachea Midline Cardiovascular: Yes: WNL, Regular Rate and Rhythm, S1, S2 Respiratory: Yes: WNL, Regular, CTA Bilaterally Gastrointestinal: Yes: WNL, Normal Bowel Sounds, Soft Renal/: Yes: WNL Breast(s): Yes: WNL Musculoskeletal: Yes: WNL Edema: Yes Edema: LLE: Trace, RLE: Trace Peripheral Pulses WNL: Yes Peripheral Pulses: Left Doralis Pedis: 2+, Right Dorsalis Pedis: 2+ Neurological: Yes: WNL, Alert, Oriented, Cran Nerves II-XII Intact ...Motor Strength: WNL Psychiatric: Yes: WNL, Alert, Oriented Labs: CBC, BMP 06/02/18 06:05 06/02/18 06:05 Laboratory Results - last 24 hr 06/02/18 06/02/18 06/02/18 06:05 06:05 12:40 WBC 4.9 RBC 4.20 Hgb 12.6 Hct 38.5 MCV 91.6 MCH 29.9 MCHC 32.7 RDW 13.9 Plt Count 152 MPV 10.6 Absolute Neuts (auto) 2.8 Neutrophils % 57.4 Lymphocytes % 30.1 Monocytes % 8.8 Eosinophils % 3.1 D Basophils % 0.6 Nucleated RBC % 0 Sodium 141 Potassium 4.0 Chloride 106 Carbon Dioxide 29 Anion Gap 5 L BUN 16 Creatinine 0.7 Creat Clearance w eGFR > 60 Random Glucose 94 Hemoglobin A1c % 6.0 Calcium 8.9 Total Bilirubin 0.6 AST 18 ALT 22 Alkaline Phosphatase 83 Creatine Kinase 161 Creatine Kinase Index 1.6 CK-MB (CK-2) 2.6 Troponin I < 0.02 Total Protein 6.7 Albumin 3.7 Triglycerides Cholesterol Total LDL Cholesterol HDL Cholesterol TSH Free T4 Free T3 06/02/18 06/02/18 12:40 12:40 WBC RBC Hgb Hct MCV MCH MCHC RDW Plt Count MPV Absolute Neuts (auto) Neutrophils % Lymphocytes % Monocytes % Eosinophils % Basophils % Nucleated RBC % Sodium Potassium Chloride Carbon Dioxide Anion Gap BUN Creatinine Creat Clearance w eGFR Random Glucose Hemoglobin A1c % Calcium Total Bilirubin AST ALT Alkaline Phosphatase Creatine Kinase 136 Creatine Kinase Index CK-MB (CK-2) Troponin I < 0.02 Total Protein Albumin Triglycerides 111 Cholesterol 175 Total LDL Cholesterol 97 HDL Cholesterol 69 H TSH 1.26 Free T4 1.02 Free T3 2.8 Intake & Output 05/31/18 06/01/18 06/02/18 06/03/18 23:59 23:59 23:59 23:59 Intake Total 400 Balance 400 Weight 65.6 kg Current Medications Generic Name Dose Route Start Last Admin Trade Name Nila PRN Reason Stop Dose Admin Amlodipine Besylate 5 mg 06/02/18 22:00 06/02/18 21:42 Norvasc - PO 5 mg HS ANT Administration Aspirin 81 mg 06/02/18 11:30 06/02/18 12:11 Ecotrin - PO Not Given DAILY ANT Heparin Sodium (Porcine) 5,000 unit 06/02/18 22:00 06/02/18 21:41 Heparin - SQ 5,000 unit BID ANT Administration Sodium Chloride 250 mls @ 250 mls/hr 06/03/18 06:22 06/03/18 06:23 Normal Saline - IV 06/03/18 07:21 Not Given ASDIR STA Lisinopril 20 mg 06/02/18 22:00 06/02/18 21:42 Prinivil PO 20 mg HS ANT Administration Metoprolol Succinate 25 mg 06/02/18 11:30 06/02/18 12:16 Toprol Xl - PO 25 mg DAILY ANT Administration Pantoprazole Sodium 20 mg 06/03/18 10:00 Protonix - PO DAILY ANT
[2018-06-03] MEDS: SODIUM CHLORIDE 250 ML IV STA ×2 (06:22→06:23)
[2018-06-03 07:02] LABS: ALBUMIN 3.5 g/dl (3.4-5.0); ALK PHOS 73 U/L (45-117); ANION GAP 7 MMOL/L (8-16); BILIRUBIN,TOTAL 0.9 mg/dL (0.2-1); BLOOD UREA NITROGEN 17 mg/dL (7-18); CHLORIDE 106 mmol/L (98-107); CO2 24 mmol/L (21-32); CREATININE 0.7 mg/dL (0.55-1.3); GLUCOSE,RANDOM 121 mg/dL (74-106); POTASSIUM 4.3 mmol/L (3.5-5.1); SGOT/AST 14 U/L (15-37); SGPT/ALT 18 U/L (13-61); SODIUM 137 mmol/L (136-145); TOT PROT 6.5 g/dl (6.4-8.2)
[2018-06-03 07:17] LABS: BASO % 0.2 % (0-2.0); EOS % 0.2 % (0-4.5); HEMATOCRIT 40.1 % (32.4-45.2); HEMOGLOBIN 12.9 GM/dL (10.7-15.3); LYMPH % 9.3 % (8-40); MCH 29.4 pg (25.7-33.7); MCHC 32.2 g/dl (32.0-36.0); MEAN CELL VOLUME 91.3 fl (80-96); MEAN PLT VOLUME 10.5 fl (7.5-11.1); MONO % 4.8 % (3.8-10.2); NEUT % 85.5 % (42.8-82.8); PLATELET COUNT 158 K/MM3 (134-434); RBC 4.39 M/mm3 (3.60-5.2); WHITE BLOOD COUNT 11.8 K/mm3 (4.0-10.0)
[2018-06-03] MEDS: HEPARIN NA (PORCINE) 5,000 UNITS/ML 1ML VIAL SQ SCH (09:15)
[2018-06-03] MEDS: ASPIRIN COATED 81 MG TABLET.EC PO SCH (09:15)
[2018-06-03] MEDS: metoPROLOL SUCCINATE 25 MG TAB.SR.24H (FP) PO SCH (09:15)
[2018-06-03] MEDS ORDERED: PANTOPRAZOLE 20 MG TABLET (FP) PO SCH (10:00)
[2018-06-03] MEDS ORDERED: REGADENOSON 0.4 MG/5 ML PRE-FILLED SYRINGE IVPUSH ONE (10:15)
--- NOTE | 2018-06-03 11:45 | EKG ---
Test Reason : Blood Pressure : / mmHG Vent. Rate : 091 BPM Atrial Rate : 091 BPM P-R Int : 148 ms QRS Dur : 080 ms QT Int : 324 ms P-R-T Axes : 036 -38 -03 degrees QTc Int : 398 ms NORMAL SINUS RHYTHM LEFT AXIS DEVIATION NONSPECIFIC T WAVE ABNORMALITY ABNORMAL ECG WHEN COMPARED WITH ECG OF 02-JUN-2018 06:57, VENT. RATE HAS INCREASED BY 32 BPM NONSPECIFIC T WAVE ABNORMALITY NOW EVIDENT IN LATERAL LEADS Confirmed by JJ SEYMOUR MD ([id number]) on 06/03/2018 11:44:48 AM Referred By: Confirmed By:JJ SEYMOUR MD
--- NOTE | 2018-06-03 14:24 | DS ---
Physical Examination Vital Signs: Vital Signs Temperature 98.3 F 06/03/18 10:54 Pulse Rate 80 06/03/18 10:54 Respiratory Rate 18 06/03/18 10:54 Blood Pressure 108/64 06/03/18 10:54 O2 Sat by Pulse Oximetry (%) 94 L 06/03/18 09:00 Constitutional: Yes: Calm Cardiovascular: Yes: Regular Rate and Rhythm, S1, S2 Respiratory: Yes: CTA Bilaterally Gastrointestinal: Yes: Normal Bowel Sounds, Soft Edema: No Neurological: Yes: Alert, Oriented Labs: CBC, BMP 06/03/18 05:30 06/03/18 05:30 Discharge Summary Reason For Visit: CHEST PAIN AT REST Current Active Problems Chest pain at rest (Acute) Palpitation (Acute) Other Procedures: echo and stress test Hospital Course: - Primary Care Physician PCP: Shanda Carter - Admission Chief Complaint: CHEST PAIN/PALPITATIONS/DIZZINESS History of Present Illness: 73 yo F with h/o HTN, who p/w palpitations, and chest pain. Patient reports acute onset of palpitations this morning, and non-pleuritic, worsening, left sided chest pain, at rest beginning this evening. No identifiable triggers, or alleviators. Also endorses SOB intermittently. Reports recent medication change. Started on Amlodipine. Denies h/o similiar symptoms. Patient denies N/V, Orthopnea, PND, leg swelling/pain, F/C, CP, SOB, urinary complaints, abdominal pain, diarrhea, constipation, lightheadedness, weakness, sensory changes. in hospital:ECHO and streestest done negative troponins negative Condition: Stable - Instructions Diet, Activity, Other Instructions: Please return to the emergency department with any new or worsening symptoms or concerns. Please follow up with your primary care physician within 72 hours. Referrals: Flakita Garcia [Primary Care Provider] - Disposition: HOME - Home Medications Comprehensive Discharge Medication List: Ambulatory Orders Amlodipine Besylate/Benazepril [Lotrel 5-20 mg Capsule] 1 each PO HS 06/02/18 Omeprazole 20 mg PO DAILY 06/02/18
--- NOTE | 2018-06-03 14:34 | PN ---
Progress Note, Physician Chief Complaint: The patient appears comfortable. She has no recurrent chest pain and denies SOB or palpitation. History of Present Illness: 73 year old woman pmh HTN admitted with chest pain and palpitations. Pt seen and examined today in the [facility]. no further chest pain since admission. No evidence of MN. No ECG changes of ischemia. Echocardiogram 06/03/2018 showed normal LV size, wall motion and systolic function. Treadmill exercise stress test 06/03/2018 (3:27 minutes of Santosh, 91% MPHR): Normal perfusion and normal LVEF (73%). - Current Medication List Current Medications: Active Medications Amlodipine Besylate (Norvasc -) 5 mg PO HS [facility] Last Admin: 06/02/18 21:42 Dose: 5 mg Aspirin (Ecotrin -) 81 mg PO DAILY [facility] Last Admin: 06/03/18 09:15 Dose: 81 mg Heparin Sodium (Porcine) (Heparin -) 5,000 unit SQ BID [facility] Last Admin: 06/03/18 09:15 Dose: 5,000 unit Lisinopril (Prinivil) 20 mg PO HS [facility] Last Admin: 06/02/18 21:42 Dose: 20 mg Metoprolol Succinate (Toprol Xl -) 25 mg PO DAILY [facility] Last Admin: 06/03/18 09:15 Dose: Not Given Pantoprazole Sodium (Protonix -) 20 mg PO DAILY [facility] Last Admin: 06/03/18 09:15 Dose: 20 mg - Objective Vital Signs: Vital Signs Temperature 98.3 F 06/03/18 10:54 Pulse Rate 80 06/03/18 10:54 Respiratory Rate 18 06/03/18 10:54 Blood Pressure 108/64 06/03/18 10:54 O2 Sat by Pulse Oximetry (%) 94 L 06/03/18 09:00 General: Well developed. Well nourished. No acute distress. Head: Normocephalic. Atraumatic, Eyes: PERRLA, EOMI. Sclerae anicteric. Conjunctivae clear. Neck: Supple. No JVD. No bruits. Heart: Normal S1, S2: Regular rhythm and rate. No murmur. No gallop or rub. Lungs: Symmetrical air entry. Clear to auscultation. No crackles. No wheezing or rhonchi. Abdomen: Soft. Bowel sound positive. Non tender. No masses. Extremities: No edema. No clubbing or cyanosis. PD 2+, Labs: CBC, BMP 06/03/18 05:30 06/03/18 05:30 Assessment/Plan 73 year old woman pmh HTN admitted with chest pain and palpitations. Pt seen and examined today in nad. no further chest pain since admission. No evidence of MN. No ECG changes of ischemia. Echocardiogram 06/03/2018 showed normal LV size, wall motion and systolic function. Treadmill exercise stress test 06/03/2018 (3:27 minutes of Santosh, 91% MPHR): Normal perfusion and normal LVEF (73%). The patient can be discharged home today. Resume her home medications. Please call us for reconsult as needed.
[2018-06-03 14:42] VITALS: BP 138/56; PULSE 95; TEMP 99.8
== END 2018-06-03 15:43 | disposition home or self-care (01) | DRG 313 ==
LOC: JER 03:51 → JERBED 08:47 → OBSVTOIN 11:20 → J2W 13:05 → J4S 06-03 05:49
PROVIDERS: ADMIT Family Medicine; ATTEND Family Medicine
DX: R07.89 Other chest pain (principal); R00.2 Palpitations; I95.9 Hypotension, unspecified; I10 Essential (primary) hypertension; E78.00 Pure hypercholesterolemia, unspecified; Z87.891 Personal history of nicotine dependence
CPT/HCPCS: 36415; 71045-TC-FY; 78452-TC; 80053; 80061; 82550; 82553; 83036; 83721; 84439; 84443; 84481; 84484; 85025; 90688; 93005; 93010; 93017; 93306-TC; 99283-25; A9502; G0008; G0378; J1644